=== PATIENT | female | born 1945 | race Hispanic/Latino ===

== ENCOUNTER 2023-08-23 05:44 | Day surgery (SDC) | payer OTHER ==
[2023-08-23] VITALS (12 sets, daily range): BP systolic 150–162; BP diastolic 59–85; PULSE 72–102; RESP 15–17
[~2023-08-23] VITALS: Ht 144.8 cm; Wt 43.5 kg
[2023-08-23] MEDS ORDERED: 0.9%NACL 1000ML 0 ML IV ONE (06:20)
[2023-08-23] MEDS ORDERED: CITA-107 PO (06:31)
[2023-08-23] MEDS ORDERED: HYDR100T15 PO (06:31)
[2023-08-23] MEDS ORDERED: LABE200T7 PO (06:31)
[2023-08-23] MEDS ORDERED: DORZ10DR19 OP (06:31)
[2023-08-23] MEDS ORDERED: BRIM5DRO21 OP (06:31)
[2023-08-23] MEDS ORDERED: LATA2.5D14 OP (06:31)
[2023-08-23] MEDS ORDERED: ATOR40TA69 PO (06:31)
[2023-08-23] MEDS ORDERED: ALEN70TA80 PO (06:31)
[2023-08-23] MEDS ORDERED: FERR-63 PO (06:31)
[2023-08-23] MEDS ORDERED: LEVO25CA4 PO (06:36)
[2023-08-23] MEDS ORDERED: MEGE40TA33 PO (06:36)
[2023-08-23] MEDS ORDERED: PANT40TA54 PO (06:36)
[2023-08-23] MEDS ORDERED: INSU100V45 SQ (06:36)
[2023-08-23] MEDS ORDERED: METO5TAB7 PO (06:36)
[2023-08-23] MEDS ORDERED: LOSA100T59 PO (06:36)
[2023-08-23] MEDS ORDERED: TRAZ-187 PO (06:36)
[2023-08-23] MEDS ORDERED: INSLAN SQ (06:36)
[2023-08-23] MEDS ORDERED: NITR0.4T50 SL (06:38)
[2023-08-23] MEDS: 0.9% NACL 500ML IV.SOLN 500 ML IV ONE (06:42)
[2023-08-23] MEDS ORDERED: PROPOFOL 10 MG/ML 20ML VIAL IV ONE (07:10)
[2023-08-23] MEDS ORDERED: LIDOCAINE HCL 1% 20 ML VIAL ONE (07:11)
== END 2023-08-23 08:45 | disposition home or self-care (01) ==
LOC: ENDO 05:44 → DAH 05:44 → ENDO 08:45
PROVIDERS: ATTEND Internal Medicine Gastroenterology
DX: R10.13 Epigastric pain (principal); K25.3 Acute gastric ulcer without hemorrhage or perforation; D50.9 Iron deficiency anemia, unspecified; K31.89 Other diseases of stomach and duodenum; K57.30 Diverticulosis of large intestine without perforation or abscess without bleeding; F41.9 Anxiety disorder, unspecified; M19.90 Unspecified osteoarthritis, unspecified site; E11.22 Type 2 diabetes mellitus with diabetic chronic kidney disease; I12.0 Hypertensive chronic kidney disease with stage 5 chronic kidney disease or end stage renal disease; N18.6 End stage renal disease; Z99.2 Dependence on renal dialysis; Z04.9 Encounter for examination and observation for unspecified reason; Z90.49 Acquired absence of other specified parts of digestive tract; Z98.890 Other specified postprocedural states
CPT/HCPCS: 43239; 82948 ×2; J7040; J2704; A4620; A4215 ×2; A4223; A4222; A4221; A4663; A4606; J7030; J3490

== ENCOUNTER 2023-12-08 06:48 | Day surgery (SDC) | payer OTHER ==
[2023-12-08] VITALS (11 sets, daily range): BP systolic 132–156; BP diastolic 66–85; PULSE 74–86; RESP 15–20; TEMP 97–98.6
[~2023-12-08] VITALS: Ht 152.4 cm; Wt 44.9 kg
[~2023-12-08 06:48] MED LIST: 0.9%NACL 1000ML 0 ML IV ONE; ALEN70TA80 PO; ATOR40TA69 PO; BRIM5DRO21 OP; CITA-107 PO; DORZ10DR19 OP; FERR-63 PO; HYDR100T15 PO; INSLAN SQ; INSU100V45 SQ; LABE200T7 PO; LATA2.5D14 OP; LEVO25CA4 PO; LOSA100T59 PO; MEGE40TA33 PO; METO5TAB7 PO; NITR0.4T50 SL; PANT40TA54 PO; TRAZ-187 PO
[2023-12-08] MEDS ORDERED: INSLAN SQ (08:32)
[2023-12-08] MEDS ORDERED: LISPRO INSULIN SQ ×2 (08:35→08:39)
[2023-12-08] MEDS ORDERED: LABE200T7 PO (08:39)
[2023-12-08] MEDS ORDERED: CELE-146 PO (08:40)
[2023-12-08] MEDS ORDERED: SACU1TAB PO (08:47)
[2023-12-08] MEDS ORDERED: TYLENOL ARTHRITIS PO (08:47)
[2023-12-08] MEDS ORDERED: ZOLP5TAB8 PO (08:47)
[2023-12-08] MEDS ORDERED: HYDR-4060 PO (08:47)
[2023-12-08] MEDS ORDERED: OMEP40CA21 PO (08:47)
[2023-12-08] MEDS ORDERED: NINT100C PO (08:47)
[2023-12-08] MEDS: 0.9% NACL 500ML IV.SOLN 500 ML IV ONE (09:15)
[2023-12-08] MEDS ORDERED: proPOFol 10 MG/ML 20ML VIAL IV ONE (09:33)
== END 2023-12-08 10:59 | disposition home or self-care (01) ==
LOC: ENDO 06:48 → DAH 06:48 → ENDO 10:59
PROVIDERS: ATTEND Internal Medicine Gastroenterology
DX: K25.3 Acute gastric ulcer without hemorrhage or perforation (principal); K29.50 Unspecified chronic gastritis without bleeding; K31.89 Other diseases of stomach and duodenum; K44.9 Diaphragmatic hernia without obstruction or gangrene; K57.30 Diverticulosis of large intestine without perforation or abscess without bleeding; I12.0 Hypertensive chronic kidney disease with stage 5 chronic kidney disease or end stage renal disease; D63.1 Anemia in chronic kidney disease; E11.22 Type 2 diabetes mellitus with diabetic chronic kidney disease; N18.6 End stage renal disease; F41.9 Anxiety disorder, unspecified; M19.90 Unspecified osteoarthritis, unspecified site; Z86.010 Personal history of colon polyps; Z99.2 Dependence on renal dialysis; Z79.899 Other long term (current) drug therapy
CPT/HCPCS: 82948 ×3; 43239; J7040; J2704; A4620; A7002; J7030; J3490

== ENCOUNTER 2024-01-31 06:35 | Day surgery (SDC) | payer OTHER ==
[~2024-01-31] VITALS: Ht 144.8 cm; Wt 43.5 kg
[2024-01-31] VITALS (9 sets, daily range): BP systolic 162–201; BP diastolic 72–99; PULSE 76–86; RESP 15–18; TEMP 96.7–98.1
[~2024-01-31 06:35] MED LIST changes: -BRIM5DRO21 OP; +CELE-146 PO; -DORZ10DR19 OP; +HYDR-4060 PO; -INSU100V45 SQ; -LATA2.5D14 OP; +LISPRO INSULIN SQ; -LOSA100T59 PO; +NINT100C PO; -NITR0.4T50 SL; +OMEP40CA21 PO; -PANT40TA54 PO; +SACU1TAB PO; -TRAZ-187 PO; +TYLENOL ARTHRITIS PO; +ZOLP5TAB8 PO
[2024-01-31] MEDS ORDERED: DORZ10DR9 OP (08:28)
[2024-01-31] MEDS ORDERED: SUCR1TAB2 PO (08:30)
[2024-01-31] MEDS: 0.9% NACL 500ML IV.SOLN 500 ML IV ONE (08:32)
[2024-01-31] MEDS ORDERED: proPOFol 10 MG/ML 20ML VIAL IV ONE (10:11)
[2024-01-31] MEDS ORDERED: hydrALAZine 20MG/ML VIAL ONE (10:37)
== END 2024-01-31 11:27 | disposition home or self-care (01) ==
LOC: DAH 06:35
PROVIDERS: ATTEND Internal Medicine Gastroenterology
DX: K25.3 Acute gastric ulcer without hemorrhage or perforation (principal); D50.9 Iron deficiency anemia, unspecified; K29.50 Unspecified chronic gastritis without bleeding; I12.0 Hypertensive chronic kidney disease with stage 5 chronic kidney disease or end stage renal disease; E11.22 Type 2 diabetes mellitus with diabetic chronic kidney disease; N18.6 End stage renal disease; F41.9 Anxiety disorder, unspecified; M19.90 Unspecified osteoarthritis, unspecified site; A04.72 Enterocolitis due to Clostridium difficile, not specified as recurrent; A02.0 Salmonella enteritis; K44.9 Diaphragmatic hernia without obstruction or gangrene; K57.30 Diverticulosis of large intestine without perforation or abscess without bleeding; Z86.0100 Personal history of colon polyps, unspecified; Z99.2 Dependence on renal dialysis; Z79.899 Other long term (current) drug therapy
CPT/HCPCS: 43239; 82948 ×2; J7040; J2704; A4620; A4215 ×2; A4223; A4222; A4221; A4663; A4606; J0360; J7030; J3490